=== PATIENT | female | born 1995 | race Caucasian/White ===

== ENCOUNTER 2016-10-25 21:15 | Emergency (ER) | payer SELFPAY ==
[~2016-10-25] VITALS: Ht 165.1 cm; Wt 141.7 kg
[~2016-10-25 21:15] MED LIST: NO HOME MEDICATIONS; ZOLOFT 25MG25 MG
[2016-10-25 21:18] VITALS: BP 136/83; TEMP 99.2
[2016-10-25] MEDS ORDERED: DOXYCYCLINE HY100 MG PO (21:49)
[2016-10-25] MEDS ORDERED: ZOFRAN 4MG T4 MG/TAB PO (21:49)
[2016-10-25] MEDS ORDERED: NORCO 325 MG-51 TAB PO (21:49)
[2016-10-25 22:20] VITALS: PULSE 96
== END 2016-10-25 22:20 | disposition home or self-care (01) ==
LOC: COL.ER 21:15
DX: S80.861A Insect bite (nonvenomous), right lower leg, initial encounter (principal); W57.XXXA Bitten or stung by nonvenomous insect and other nonvenomous arthropods, initial encounter

== ENCOUNTER 2016-12-22 21:58 | Emergency (ER) | payer SELFPAY ==
[~2016-12-22] VITALS: Ht 165.1 cm; Wt 150.0 kg
[~2016-12-22 21:58] MED LIST changes: +DOXYCYCLINE HY100 MG PO; +NORCO 325 MG-51 TAB PO; +ZOFRAN 4MG T4 MG/TAB PO
[2016-12-22 22:09] VITALS: BP 199/100; TEMP 98.7
[2016-12-23 00:22] VITALS: PULSE 100
[2016-12-23] MEDS ORDERED: NORCO 325 MG-51 TAB PO (02:15)
== END 2016-12-23 02:36 | disposition home or self-care (01) ==
LOC: COL.ER 21:58
DX: S16.1XXA Strain of muscle, fascia and tendon at neck level, initial encounter (principal); S29.012A Strain of muscle and tendon of back wall of thorax, initial encounter; F17.210 Nicotine dependence, cigarettes, uncomplicated; X50.0XXA Overexertion from strenuous movement or load, initial encounter